=== PATIENT | female | born 1955 | race Caucasian/White ===

== ENCOUNTER 2024-05-06 11:38 | Outpatient (AMB) | payer OTHER, SELFPAY ==
--- NOTE | 2024-05-06 12:07 | MHC.OFFVIS ---
Vital Signs 05/06/24 12:17 Height 5 ft 3 in BMI Reason not done Patient refused/unable BP 126/82 Blood Pressure Location Rt brachial Position Sitting Pulse 68 Pulse Source Pulse Oximeter Pulse Oximetry (%) 96 Oxygen Delivery Method Room Air Intake Visit Reasons: colonoscopy Screening Intake Note: NEW PATIENT for [place] screening, records from PCP requested 05/01. Last colo > 10 YRS via [facility] Chief Complaint; Pt reports chronic hx of constipation and reflux. Both of which are fairly well controlled at the moment. Pt requests to have prep other than gavilyte, adverse reaction reported. Pt would prefer sutab if possible. [employer] Flatbed Driver Required: No Accompanied by: Self / Same As Patient Allergies bisacodyl [From GaviLyte-H and Bisacodyl] Adverse Reaction (Intermediate, Verified 05/06/24 12:22) Abdominal Pain naproxen Adverse Reaction (Intermediate, Verified 05/06/24 12:12) Dizziness polyethylene glycol 3350 [From GaviLyte-H and Bisacodyl] Adverse Reaction (Intermediate, Verified 05/06/24 12:22) Abdominal Pain potassium chloride [From GaviLyte-H and Bisacodyl] Adverse Reaction (Intermediate, Verified 05/06/24 12:22) Abdominal Pain sodium bicarbonate [From GaviLyte-H and Bisacodyl] Adverse Reaction (Intermediate, Verified 05/06/24 12:22) Abdominal Pain sodium chloride [From GaviLyte-H and Bisacodyl] Adverse Reaction (Intermediate, Verified 05/06/24 12:22) Abdominal Pain HPI HPI colonoscopy Screening: Details: 69 year old? female with past medical history of fibromyalgia, recurrent UTIs, depression, hypertension, chronic rhinitis, migraines, GERD, asthma, recent diagnosis of DVT is here today for pre colonoscopy screening.? Patient was sent to us by her PCP.? Last colonoscopy was in 2017.? Patient denies any gastrointestinal symptoms in the past or at present.? However patient does admit that she is unable to move her bowels daily. Currently on regimen of MiraLax every other day. Denies family history of CRC.? Denies history of difficulty with sedation or anesthesia in the past.? Negative for history of sleep apnea.? Denies any history of cardiac, renal, pulmonary, or hepatic disease.?? No history of infectious? diseases like hepatitis A, B, C, HIV or tuberculosis.? Patient is currently on Eliquis. Recently started on Eliquis, about 2 months ago for DVT of jugular in cephalic vein. Last ultrasound still showed blood clot per patient. Patient will be seen by a provider sometimes next month. She will require probably longer uninterrupted anticoagulation. [facility] Medical History Acute cough Onychomycosis Recurrent UTI Thrombosis of internal jugular vein DVT (deep venous thrombosis) Surgical History Hx of colonoscopy (~2013) History of cataract surgery Total knee replacement status Family History Paternal Uncle Colon cancer Maternal Aunt Breast cancer Social History Alcohol intake: current Comment: Glass of wine / night Patient Tobacco Use Status: Never used Tobacco Review of Systems Const Denies weight gain and Denies weight loss ENT Reports no additional complaints, Denies dysphagia and Denies odynophagia Card Reports no additional complaints Resp Reports no additional complaints GI Denies abdominal pain, Denies belching, Denies melena, Denies bloating, Denies change in bowel habits, Reports constipation (Occasional), Denies dysphagia, Denies excessive flatus, Denies dyspepsia, Reports heartburn (Occasional managed with diet and omeprazole), Denies diarrhea, Denies loose stools, Denies nausea, Denies odynophagia and Denies vomiting Reports no additional complaints Musc Reports no additional complaints Neuro Reports no additional complaints Psych Reports no additional complaints Endo Reports no additional complaints Physical Exam Vital Signs: Last Vital Signs Pulse 68 05/06/24 12:17 BP 126/82 05/06/24 12:17 Pulse Ox 96 05/06/24 12:17 Oxygen Delivery Method Room Air 05/06/24 12:17 Const Other: Patient is ambulating with wheeled walker General: no acute distress and well developed Nutritional Appearance: well nourished Orientation/consciousness: patient oriented x3 Resp Effort & Inspection: normal respiratory effort, able to speak in complete sentences, no tracheal deviation and symmetric chest movement Auscultation: clear to auscultation bilaterally Cardio Rate: regular rate GI Inspection: Yes normal to inspection and No distended Palpation (GI): Soft to palpation, not firm, nontender and No hepatosplenomegaly present Auscultation: normal bowel sounds General: Yes no CVA tenderness Back/Spine/Pelvis Back: no CVA tenderness Skin General skin exam: elasticity normal, turgor normal and dry skin Neuro General: patient oriented x3 Psych Appearance: grossly normal Mental Status: mental status grossly normal Assessment & Plan Assessment & Plan (1) Screen for colon cancer: Code(s): Z12.11 - Encounter for screening for malignant neoplasm of colon (2) DVT (deep venous thrombosis): Code(s): I82.409 - Acute embolism and thrombosis of unspecified deep veins of unspecified lower extremity Qualifiers: DVT location: upper extremity Affected thrombotic vein of extremity: axillary Chronicity: acute Laterality: left Qualified Code(s): I82.A12 - Acute embolism and thrombosis of left axillary vein (3) Anticoagulated by anticoagulation treatment: Code(s): Z79.01 - terminal system operator (current) use of anticoagulants Plan Discussed with patient what to expect before during and after procedure. Patient will try to take MiraLax daily and increase fluid intake. Patient is unable to interrupt her therapy with Eliquis due to DVT still present. So far 2 months of therapy. Patient will return in July. She will ask her provider how long she will require to be on uninterrupted anticoagulation. Patient is agreeable to this plan and verbalizes understanding of instructions. She will call us if she will have any GI concerning symptoms. She is agreeable to current plan of care and verbalizes understanding of instructions. She was given the opportunity to ask questions and all questions answered. Thank you for allowing me to participate in her care Coding Level of Care Code New Pt Level 3 (97618) Diagnoses Screen for colon cancer Z12.11 Acute deep vein thrombosis (DVT) of axillary vein of left upper extremity I82.A12 DVT location: upper extremity Affected thrombotic vein of extremity: axillary Chronicity: acute Laterality: left Anticoagulated by anticoagulation treatment Z79.01 Time Spent (min) 40 Comment 30 minutes spent with patient and additional 10 minutes spent reviewing her records
[2024-05-06 12:17] VITALS: BP 126/82; PULSE 68; O2SAT 96
== END 2024-05-06 12:45 | disposition home or self-care (01) ==
PROVIDERS: PCP Student in an Organized Health Care Education/Training Program; Visit Provider Nurse Practitioner Family
DX: K59.00 Constipation, unspecified (principal); I82.A12 Acute embolism and thrombosis of left axillary vein; Z79.01 Long term (current) use of anticoagulants
CPT/HCPCS: 99203

== ENCOUNTER → 2024-05-06 11:38 | Outpatient (BNVA) | payer OTHER, SELFPAY | PROVIDERS: PCP Student in an Organized Health Care Education/Training Program; Visit Provider Nurse Practitioner Family ==

== ENCOUNTER → 2024-06-25 10:11 | Day surgery (SDC) | payer MEDICARE, OTHER, SELFPAY ==
--- OUTSIDE RECORDS SUMMARY | 2024-06-23 16:47 | XMS_ITS | Clinical Summary ---
Author Organization [facility] [place] [address] Care Team Providers Care Metal Off Bearer Name Role Phone Inactive, Pcp External Primary Care Provider Radha vailable Allergies Active Allergy Reactions Criticality Noted Date Comments Cis Free Text Allergy High Hymenoptera (Bee) Stings. CIS - Anaphylaxis Naproxen Sodium CIS - extreme dizziness Medications Medication Sig Dispensed Refills Start Date End Date Status CIS Free Text Med - stinging insect allergy shots 06/23/2008 Active CIS Free Text Med - ASA (Aspirin) 06/23/2008 Active SUMAtriptan (IMITREX) 50 mg tablet 06/23/2008 Active traMADol (ULTRAM) 50 mg tablet 06/23/2008 Active montelukast (SINGULAIR) 10 mg tablet 06/23/2008 Active omeprazole (PRILOSEC) 40 mg capsule 06/23/2008 Active Calcium 500 mg Tab 06/23/2008 Active DOCOSAHEXANOIC ACID/EPA (FISH OIL ORAL) 06/23/2008 Active ascorbic acid (VITAMIN C) 1,000 mg tablet 06/23/2008 Active MULTIVITAMIN ORAL 06/23/2008 Active Cetirizine (ZYRTEC) 10 mg Cap Take 10 capsules by mouth daily. Active gabapentin (NEURONTIN) 600 mg tablet Take 1,200 mg by mouth 2 times daily. Active buPROPion (WELLBUTRIN) 100 mg tablet Take 100 mg by mouth 2 times daily. Active Cholecalciferol, Vitamin D3, (VITAMIN D) 2,000 unit Cap Take 2,000 mg by mouth 2 times daily. Active etodolac (LODINE) 500 mg tablet Take 500 mg by mouth 2 times daily. Active Ketamine (Bulk) 100 % Powd 10 %, Baclofen (Bulk) 100 % Powd 2 %, Cyclobenzaprine (Bulk) 100 % Powd 2 %, Gabapentin (Bulk) 100 % Powd 6 %, Tetracaine (Bulk) Powd 2 % Apply topically 4 times daily as needed. 240 g 5 04/06/2014 Active Social History Tobacco Use Types Packs/Day Years Used Date Smoking Tobacco: Never Sex and Gender Information Value Date Recorded Sex Assigned at Not on file Gender Identity Not on file Sexual Orientation Not on file Last Filed Vital Signs Vital Sign Reading Time Taken Comments Blood Pressure 145/108 08/25/2013 2:27 PM EDT Pulse 72 08/25/2013 2:27 PM EDT Temperature - - Respiratory Rate - - Oxygen Saturation 98% 08/25/2013 2:27 PM EDT Inhaled Oxygen Concentration - - Weight 86.2 kg (190 lb) 08/25/2013 2:27 PM EDT Height 162.6 cm (5' 4 ) 08/25/2013 2:27 PM EDT Body Mass Index 32.61 08/25/2013 2:27 PM EDT Plan of Treatment Health Maintenance Due Date Last Done Comments CT Colonography 1956 Colonoscopy 1956 Colorectal Cancer Screening 1956 FIT DNA 1956 FIT 1956 Sigmoidoscopy (10 year) with FIT yearly 1956 Sigmoidoscopy 1956 Hepatitis C Screening 1974 Tetanus/Diphtheria/Pertussis Vaccines (1 - Tdap) 1975 Breast Cancer Share Decision Needed 1996 Breast Cancer screening 1996 Pneumoccocal Vaccine: 50+ (1 of 1 - PCV) 2006 Zoster vaccine (1 of 2) 2006 Advance Directive 2011 Bone Density Scan 2021 Covid-19 Vaccine ( season) 2023 12/05/2021, 07/14/2020, 06/23/2020 Influenza (Flu) vaccine (1 o f 1 - Influenza standard series) 11/25/2023 Care Teams Metal Off Bearer Relationship Specialty Start Date End Date Inactive, Pcp External PCP - General 04/11/24
--- OUTSIDE RECORDS SUMMARY | 2024-06-23 16:47 | XMS_ITS | Referral Summary ---
Author Organization [facility] Address [address] [place] [address] Care Team Providers Care Motor Rebuilder Name Role Phone Hilary Zamudio Primary Care Provider [phone] Allergies Active Allergy Reactions Criticality Noted Date Comments Naproxen Sodium Dizziness,Other (see comments) 08/03/2017 CIS - extreme dizziness EXTREME DIZZINESS Medications amitriptyline (ELAVIL) 50 mg tablet Take 50 mg by mouth daily. 05/11/2023 Active etodolac (LODINE) 500 mg tablet Take 500 mg by mouth 2 times daily. 10/11/2022 Active chlorthalidone (HYGROTEN) 25 mg tablet Take 25 mg by mouth daily. 07/31/2022 Active buPROPion SR (WELLBUTRIN SR) 100 mg tablet Take 100 mg by mouth 2 times daily. 07/31/2022 Active omeprazole (PriLOSEC) 20 mg capsule Take 40 mg by mouth 2 times daily. 07/31/2022 Active montelukast (SINGULAIR) 10 mg tablet Take 10 mg by mouth daily. 07/31/2022 Active SUMAtriptan (IMITREX) 50 mg tablet Take 50 mg by mouth once daily as needed. 05/11/2023 Active traMADoL (ULTRAM) 50 mg tablet Take 50 mg by mouth 2 times daily as needed. 04/26/2023 Active fluticasone propionate (FLONASE) 50 mcg/actuation nasal spray SMARTSI [place](s) Both Nares Daily Active cholecalciferol (VITAMIN D3) 2,000 unit tablet Take 2,000 Units by mouth once a day. Active multivitamin (THERAGRAN) tablet Take 1 tablet by mouth once a day. Active calcium carbonate-vitami n D3 500 mg-3.125 mcg (125 unit) per tablet See admin instruction s. Active Active Problems Problem Noted Date Diagnosed Date Conductive hearing loss of l eft ear with unrestricted hearing of right ear 05/30/2023 Social History Tobacco Use Types Packs/Day Years Used Date Smoking Tobacco: Never Smokeless Tobacco: Never Tobacco Cessation:Counseling Given: Not Answered Comments Unknown Sex and Gender Information Value Date Recorded Sex Assigned at Female 05/29/2023 7:30 AM EST Legal Sex Female 11:53 AM EST Gender Identity Female 05/29/2023 7:30 AM EST Sexual Orientation Straight 05/29/2023 7: 30 AM EST Plan of Treatment Not on file Insurance MEDICARE [facility] Care Teams Motor Rebuilder Relationship Specialty Start Date End Date FritzHilary juarez [address] [place] [address], [address] [place] [id number] PCP - General 03/13/23
--- OUTSIDE RECORDS SUMMARY | 2024-06-23 16:47 | XMS_ITS | Clinical Summary ---
Author Organization [facility] Address [address] [place] [address] Care Team Providers Care Central Office Frame Wirer Name Role Phone Hilary Zamudio Primary Care Provider [phone] Allergies Active Allergy Reactions Criticality Noted Date [...] propionate (FLONASE) 50 mcg/actuation nasal spray SMARTSI [place](s) Both Nares Daily Active cholecalciferol (VITAMIN D3) [...] 7: 30 AM EST Plan of Treatment Health Maintenance Due Date Last Done Comments Cologuard 1956 Colon Cancer Screening 1956 Colonoscopy 1956 FOBT / Fit Test 1956 Sigmoidoscopy 1956 Osteoporosis Screening 2006 COVID-19 Vaccine ( season) 2023 12/29/2022, 08/04/2022, 12/05/2021, Additional history exists Influenza Vaccine (#1) 2023 , 12/05/2021, 11/19/2020, Additional history exists Alcohol/Substance Use Screening 03/26/2024 Health Care Proxy Review 03/26/2024 DTaP,Tdap,and Td Vaccines (3 - Td or Tdap) 03/22/2028 03/22/2018, 02/17/2009 Zoster Vaccines Completed 11/29/2017, 06/26, 07/28/2011 RSV Vaccine (60+ years old and patients) Completed 12/15/2022 Pneumococcal Vaccine: 50+ Years Completed 12/29/2022, 12/16/2021 Mammogram Discontinued 04/27/2023, 04/2023, 04/27/2023, Additional history exists Hepatitis B Vaccines Aged Out No long er eligible based on patient's age to complete this topic Insurance MEDICARE [facility] Care Teams Central Office Frame Wirer Relationship Specialty Start Date End Date Hilary Zamudio [address] [place] [address], [address] [place] [id number] PCP - General 03/13/23
--- NOTE | 2024-06-24 10:34 | HO.ANESPROP2 ---
HPI - Anesthesia Eval Consult details Narrative: 69yo F for Colonoscopy Eliquis for LUE DVT 03/2024 - follows [facility] heme, improved on imaging per 04/2024 office visit note - ok'd to hold eliquis 48h PMFSH Past Medical History Medical History Acute cough Onychomycosis Recurrent UTI Thrombosis of internal jugular vein DVT (deep venous thrombosis) Family History Family History Paternal Uncle Colon cancer Maternal Aunt Breast cancer Surgical History Surgical History Hx of colonoscopy (~2013) History of cataract surgery Total knee replacement status Social History Social History Alcohol intake: current Comment: Glass of wine / night Patient Tobacco Use Status: Never used Tobacco Meds Allergies Allergy/AdvReac Type Severity Reaction Status Date / Time bisacodyl AdvReac Intermediate Abdominal Verified 05/06/24 12:22 [From GaviLyte-H and Pain Bisacodyl] naproxen AdvReac Intermediate Dizziness Verified 05/06/24 12:12 polyethylene glycol 3350 AdvReac Intermediate Abdominal Verified 05/06/24 12:22 [From GaviLyte-H and Pain Bisacodyl] potassium chloride AdvReac Intermediate Abdominal Verified 05/06/24 12:22 [From GaviLyte-H and Pain Bisacodyl] sodium bicarbonate AdvReac Intermediate Abdominal Verified 05/06/24 12:22 [From GaviLyte-H and Pain Bisacodyl] sodium chloride AdvReac Intermediate Abdominal Verified 05/06/24 12:22 [From GaviLyte-H and Pain Bisacodyl] Home Medications ?Medication ?Instructions ?Recorded ?Confirmed ?Last Taken ?Type acetaminophen 325 mg capsule 325 mg PO QID PRN 05/06/24 Unknown History amitriptyline 75 mg tablet 75 mg PO BEDTIME 05/06/24 Unknown History apixaban 5 mg tablet (Eliquis) 5 mg PO BID 05/06/24 Unknown History ascorbic acid (vitamin C) 1,000 mg 1 g PO Q6H 05/06/24 Unknown History capsule bupropion HCl 100 mg tablet,12 hr 100 mg PO DAILY 05/06/24 Unknown History sustained-release (Wellbutrin SR) calcium 500 mg (as 1 tab PO DAILY 05/06/24 Unknown History carbonate)-vitamin D3 3.125 mcg (125 unit) tablet ciclopirox 8 % topical solution 1 appl topical BEDTIME 05/06/24 Unknown History clobetasol 0.05 % topical cream 1 appl topical BEDTIME 05/06/24 Unknown History conjugated estrogens 0.625 mg/gram 0.625 mg vaginal DAILY 05/06/24 Unknown History vaginal cream (Premarin) etodolac 500 mg tablet 500 mg PO BID 05/06/24 Unknown History fluticasone propionate 50 1 spray intranasal DAILY 05/06/24 Unknown History mcg/actuation nasal spray,suspension (Flonase Allergy Relief) lorazepam 1 mg tablet (Ativan) 1 mg PO DAILY PRN 05/06/24 Unknown History methenamine hippurate 1 gram tablet 1 g PO BID 05/06/24 Unknown History montelukast 10 mg tablet 10 mg PO DAILY 05/06/24 Unknown History multivitamin 1 tab PO DAILY 05/06/24 Unknown History omeprazole 20 mg capsule,delayed 20 mg PO DAILY 05/06/24 Unknown History release pregabalin 50 mg capsule (Lyrica) 50 mg PO BEDTIME 05/06/24 Unknown History sodium chloride 0.9 % nasal spray 1 spray intranasal BID PRN 05/06/24 Unknown History aerosol sumatriptan succinate 50 mg tablet 50 mg PO Q2-4H PRN 05/06/24 Unknown History tramadol 50 mg tablet 50 mg PO BID PRN 05/06/24 Unknown History triamcinolone acetonide 0.1 % 1 appl topical DAILY 05/06/24 Unknown History topical cream Assessment and Plan Assessment Anesthesia Assessment: Chart Reviewed
--- NOTE | 2024-06-25 11:27 | PC.NURSE ---
Patient has liquid brown results from colon prep, not clear at all. Dr Pacheco consulted, pt procedure cancelled. Pt will call office to re-book colonoscopy with a TWO day prep.
== END ==
LOC: HO.SSS 10:12
PROVIDERS: PCP Student in an Organized Health Care Education/Training Program; Visit Provider Internal Medicine Gastroenterology
DX: Z12.11 Encounter for screening for malignant neoplasm of colon (principal); Z53.8 Procedure and treatment not carried out for other reasons

== ENCOUNTER 2024-09-11 08:20 | Day surgery (SDC) | payer MEDICARE, OTHER, SELFPAY ==
--- OUTSIDE RECORDS SUMMARY | 2024-08-05 13:25 | XMS_ITS | Referral Summary ---
Author Organization [facility] Address [address] [place] [address] Care Team Providers Care Founder Ceo & President Name Role Phone Hilary Zamudio Primary Care Provider [phone] Allergies Active Allergy Reactions Criticality Noted Date [...] propionate (FLONASE) 50 mcg/actuation nasal spray SMARTSI [place](s) Both Nares Daily Active cholecalciferol (VITAMIN D3) [...] of Treatment Not on file Insurance MEDICARE [facility] Care Teams Founder Ceo & President Relationship Specialty Start Date End Date FritzHilary juarez [address] [place] [address], [address] [place] [address] PCP - General 03/13/23
--- OUTSIDE RECORDS SUMMARY | 2024-08-05 13:25 | XMS_ITS | Clinical Summary ---
Author Organization [facility] Address [address] [place] [address] Care Team Providers Care Infusion Rn Name Role Phone Hilary Zamudio Primary Care Provider [phone] Allergies Active Allergy Reactions Criticality Noted Date [...] propionate (FLONASE) 50 mcg/actuation nasal spray SMARTSI [place](s) Both Nares Daily Active cholecalciferol (VITAMIN D3) [...] 2023 12/29/2022, 08/04/2022, 12/05/2021, Additional history exists Alcohol/Substance Use Screening 03/26/2024 Health Care Proxy Review 03/26/2024 Influenza Vaccine (Season Ended) 2024 12/15/2022, 12/05/2021, 11/19/2020, Additional history exists DTaP,Tdap,and Td Vaccines (3 - Td or Tdap) 03/22/2028 03/22/2018, 02/17/2009 Zoster Vaccines Completed 11/29/2017, 06/26, 07/28/2011 RSV Vaccine (60+ years old and patients) Completed 12/15/2022 Pneumococcal Vaccine: 50+ Years Completed 12/29/2022, 12/16/2021 Mammogram Discontinued 04/27/2023, 04/2023, 04/27/2023, Additional history exists Hepatitis B Vaccines Aged Out No long er eligible based on patient's age to complete this topic Insurance MEDICARE [facility] Care Teams Infusion Rn Relationship Specialty Start Date End Date Hilary Zamudio [address] [place] [address], [address] [place] [id number] PCP - General 03/13/23
--- NOTE | 2024-09-10 10:22 | HO.ANESPROP2 ---
Documented by User: Africa Graf NP 09/10/24 10:29 HPI - Anesthesia Eval Consult details Narrative: 69yo F for Colonoscopy Eliquis for LUE and L IJ DVT (02/2024) - Follows [facility] last office visit 05/2024 with improvement of clot burden. Ok'd to hold eliquis for colo PMFSH Past Medical History Medical History (Updated 08/14/24 @ 15:23 by Justa Orlando RN) Arthritis Asthma Fibromyalgia Migraines Complex regional pain syndrome I HTN (hypertension) Onychomycosis Recurrent UTI Thrombosis of internal jugular vein DVT (deep venous thrombosis) Family History Family History Paternal Uncle Colon cancer Maternal Aunt Breast cancer Surgical History Surgical History Hx of colonoscopy (~2013) History of cataract surgery Total knee replacement status Social History Social History Are you a primary care navigator to a significant other at home: No Do you presently have visiting nurse or other home services: No Alcohol intake: current Alcohol intake frequency: 0-2 drinks per day Comment: Glass of wine / night Patient Tobacco Use Status: Never used Tobacco Second Hand Smoke Exposure: No Use of substances other than those prescribed or required for medical reasons: No Have you been hit, kicked, punched, or otherwise hurt by someone within the past year? If so, by whom?: No Are you DNR?: No Advance Directives: No Advance Directives Information Provided: Yes Advance Directives on File: No Patient : No : No Poor oral hygiene: No Meds Allergies Allergy/AdvReac Type Severity Reaction Status Date / Time bisacodyl (From GaviLyte-H AdvReac Intermediate Abdominal Verified 05/06/24 12:22 and Bisacodyl) Pain naproxen AdvReac Intermediate Dizziness Verified 05/06/24 12:12 polyethylene glycol 3350 AdvReac Intermediate Abdominal Verified 05/06/24 12:22 (From GaviLyte-H and Pain Bisacodyl) potassium chloride (From AdvReac Intermediate Abdominal Verified 05/06/24 12:22 GaviLyte-H and Bisacodyl) Pain sodium bicarbonate (From AdvReac Intermediate Abdominal Verified 05/06/24 12:22 GaviLyte-H and Bisacodyl) Pain sodium chloride (From AdvReac Intermediate Abdominal Verified 05/06/24 12:22 GaviLyte-H and Bisacodyl) Pain Home Medications ?Medication ?Instructions ?Recorded ?Confirmed ?Last Taken ?Type acetaminophen 325 mg capsule 325 mg PO QID PRN Pain 05/06/24 08/14/24 Unknown History amitriptyline 75 mg tablet 75 mg PO BEDTIME 05/06/24 08/14/24 Unknown History apixaban 5 mg tablet (Eliquis) 5 mg PO BID 05/06/24 08/14/24 Unknown History ascorbic acid (vitamin C) 1,000 mg 1 g PO Q6H 05/06/24 08/14/24 Unknown History capsule bupropion HCl 100 mg tablet,12 hr 100 mg PO DAILY 05/06/24 08/14/24 Unknown History sustained-release (Wellbutrin SR) calcium 500 mg (as 1 tab PO DAILY 05/06/24 08/14/24 Unknown History carbonate)-vitamin D3 3.125 mcg (125 unit) tablet ciclopirox 8 % topical solution 1 appl topical BEDTIME 05/06/24 08/14/24 Unknown History clobetasol 0.05 % topical cream 1 appl topical BEDTIME 05/06/24 08/14/24 Unknown History conjugated estrogens 0.625 mg/gram 0.625 mg vaginal DAILY 05/06/24 08/14/24 Unknown History vaginal cream (Premarin) etodolac 500 mg tablet 500 mg PO BID 05/06/24 08/14/24 Unknown History fluticasone propionate 50 1 spray intranasal DAILY 05/06/24 08/14/24 Unknown History mcg/actuation nasal spray,suspension (Flonase Allergy Relief) lorazepam 1 mg tablet (Ativan) 1 mg PO DAILY PRN Anxiety 05/06/24 08/14/24 Unknown History methenamine hippurate 1 gram tablet 1 g PO BID 05/06/24 08/14/24 Unknown History montelukast 10 mg tablet 10 mg PO DAILY 05/06/24 08/14/24 Unknown History multivitamin 1 tab PO DAILY 05/06/24 08/14/24 Unknown History omeprazole 20 mg capsule,delayed 20 mg PO DAILY 05/06/24 08/14/24 Unknown History release pregabalin 50 mg capsule (Lyrica) 50 mg PO BEDTIME 05/06/24 08/14/24 Unknown History sodium chloride 0.9 % nasal spray 1 spray intranasal BID PRN nasal 05/06/24 08/14/24 Unknown History aerosol dryness sumatriptan succinate 50 mg tablet 50 mg PO Q2-4H PRN Migraine 05/06/24 08/14/24 Unknown History Headache tramadol 50 mg tablet 50 mg PO BID PRN Pain 05/06/24 08/14/24 Unknown History triamcinolone acetonide 0.1 % 1 appl topical DAILY 05/06/24 08/14/24 Unknown History topical cream chlorthalidone 25 mg tablet 25 mg PO DAILY 08/14/24 08/14/24 Unknown History Exam Height,Weight and Vital Signs: Height 5 ft 3 in Assessment and Plan Assessment Anesthesia Assessment: Chart Reviewed Documented by User: Bry Irwin MD 09/11/24 10:02 [facility] Past Medical History Medical History (Updated 08/14/24 @ 15:23 by Justa Orlando RN) Arthritis Asthma Fibromyalgia Migraines Complex regional pain syndrome I HTN (hypertension) Onychomycosis Recurrent UTI Thrombosis of internal jugular vein DVT (deep venous thrombosis) Family History Family History Paternal Uncle Colon cancer Maternal Aunt Breast cancer Family history of problems with anesthesia: No Surgical History Surgical History Hx of colonoscopy (~2013) History of cataract surgery Total knee replacement status History of Problems with Anesthesia: No Social History Social History Are you a primary care navigator to a significant other at home: No Do you presently have visiting nurse or other home services: No Alcohol intake: current Alcohol intake frequency: 0-2 drinks per day Comment: Glass of wine / night Patient Tobacco Use Status: Never used Tobacco Second Hand Smoke Exposure: No Use of substances other than those prescribed or required for medical reasons: No Have you been hit, kicked, punched, or otherwise hurt by someone within the past year? If so, by whom?: No Are you DNR?: No Advance Directives: No Advance Directives Information Provided: Yes Advance Directives on File: No Patient : No : No Poor oral hygiene: No Meds Allergies Allergy/AdvReac Type Severity Reaction Status Date / Time bisacodyl (From GaviLyte-H AdvReac Intermediate Abdominal Verified 05/06/24 12:22 and Bisacodyl) Pain naproxen AdvReac Intermediate Dizziness Verified 05/06/24 12:12 polyethylene glycol 3350 AdvReac Intermediate Abdominal Verified 05/06/24 12:22 (From GaviLyte-H and Pain Bisacodyl) potassium chloride (From AdvReac Intermediate Abdominal Verified 05/06/24 12:22 GaviLyte-H and Bisacodyl) Pain sodium bicarbonate (From AdvReac Intermediate Abdominal Verified 05/06/24 12:22 GaviLyte-H and Bisacodyl) Pain sodium chloride (From AdvReac Intermediate Abdominal Verified 05/06/24 12:22 GaviLyte-H and Bisacodyl) Pain Home Medications ?Medication ?Instructions ?Recorded ?Confirmed ?Last Taken ?Type acetaminophen 325 mg capsule 325 mg PO QID PRN Pain 05/06/24 08/14/24 Unknown History amitriptyline 75 mg tablet 75 mg PO BEDTIME 05/06/24 08/14/24 Unknown History apixaban 5 mg tablet (Eliquis) 5 mg PO BID 05/06/24 08/14/24 Unknown History ascorbic acid (vitamin C) 1,000 mg 1 g PO Q6H 05/06/24 08/14/24 Unknown History capsule bupropion HCl 100 mg tablet,12 hr 100 mg PO DAILY 05/06/24 08/14/24 Unknown History sustained-release (Wellbutrin SR) calcium 500 mg (as 1 tab PO DAILY 05/06/24 08/14/24 Unknown History carbonate)-vitamin D3 3.125 mcg (125 unit) tablet ciclopirox 8 % topical solution 1 appl topical BEDTIME 05/06/24 08/14/24 Unknown History clobetasol 0.05 % topical cream 1 appl topical BEDTIME 05/06/24 08/14/24 Unknown History conjugated estrogens 0.625 mg/gram 0.625 mg vaginal DAILY 05/06/24 08/14/24 Unknown History vaginal cream (Premarin) etodolac 500 mg tablet 500 mg PO BID 05/06/24 08/14/24 Unknown History fluticasone propionate 50 1 spray intranasal DAILY 05/06/24 08/14/24 Unknown History mcg/actuation nasal spray,suspension (Flonase Allergy Relief) lorazepam 1 mg tablet (Ativan) 1 mg PO DAILY PRN Anxiety 05/06/24 08/14/24 Unknown History methenamine hippurate 1 gram tablet 1 g PO BID 05/06/24 08/14/24 Unknown History montelukast 10 mg tablet 10 mg PO DAILY 05/06/24 08/14/24 Unknown History multivitamin 1 tab PO DAILY 05/06/24 08/14/24 Unknown History omeprazole 20 mg capsule,delayed 20 mg PO DAILY 05/06/24 08/14/24 Unknown History release pregabalin 50 mg capsule (Lyrica) 50 mg PO BEDTIME 05/06/24 08/14/24 Unknown History sodium chloride 0.9 % nasal spray 1 spray intranasal BID PRN nasal 05/06/24 08/14/24 Unknown History aerosol dryness sumatriptan succinate 50 mg tablet 50 mg PO Q2-4H PRN Migraine 05/06/24 08/14/24 Unknown History Headache tramadol 50 mg tablet 50 mg PO BID PRN Pain 05/06/24 08/14/24 Unknown History triamcinolone acetonide 0.1 % 1 appl topical DAILY 05/06/24 08/14/24 Unknown History topical cream chlorthalidone 25 mg tablet 25 mg PO DAILY 08/14/24 08/14/24 Unknown History Exam Airway Mallampati Class: II TM Dist: >3cm Neck ROM: Full Assessment and Plan Assessment Anesthesia Assessment: Anesthesia Plan Discussed Final Anesthetic Review Family History of Problems with Anesthesia: No History of Problems with Anesthesia: No NPO: Yes ASA Class: II Final Preanesthetic Review: No Changes in Pt Med Stat, Meds/Allgs Chart Reviewed, Consent Obtained/Reviewed and Anes Risks/Benef Reviewed Patient Risk: Low Procedure Risk: Low Anesthetic Plan Anesthetic Plan: TIVA Disposition: Standard PACU
[2024-09-11 08:46] VITALS: BMI 33.7
[2024-09-11 08:47] VITALS: BP 118/70; PULSE 81; RESP 17; TEMP 36.1; O2SAT 97
[2024-09-11] MEDS: Lactated Ringers 1,000 ML 100 ML IVCONT (08:55)
--- NOTE | 2024-09-11 09:39 | MHC.SHP ---
Pre-Procedural Eval Section A - 24 Hr Update-Section A only Date of Service: 09/11/24 Section B - Complete if H&P > 30 days Chief Complaint: Encounter for screening for malignant neoplasm of Relevant Family History (Specify if Yes): Yes Relevant Social History: None Present Medications: see Short Stay Collaborative assessment Medical History: Significant History (Acute cough Onychomycosis Recurrent UTI Thrombosis of internal jugular vein DVT (deep venous thrombosis)) History of Previous Operations: Relevant previous surgery/procedure and date(s) ( Hx of colonoscopy (~2013) History of cataract surgery Total knee replacement status) Allergies: Allergies Allergy/AdvReac Type Severity Reaction Status Date / Time bisacodyl (From GaviLyte-H AdvReac Intermediate Abdominal Verified 05/06/24 12:22 and Bisacodyl) Pain naproxen AdvReac Intermediate Dizziness Verified 05/06/24 12:12 polyethylene glycol 3350 AdvReac Intermediate Abdominal Verified 05/06/24 12:22 (From GaviLyte-H and Pain Bisacodyl) potassium chloride (From AdvReac Intermediate Abdominal Verified 05/06/24 12:22 GaviLyte-H and Bisacodyl) Pain sodium bicarbonate (From AdvReac Intermediate Abdominal Verified 05/06/24 12:22 GaviLyte-H and Bisacodyl) Pain sodium chloride (From AdvReac Intermediate Abdominal Verified 05/06/24 12:22 GaviLyte-H and Bisacodyl) Pain Review of Systems Sugical H&P ROS: Negative: Constitution, Cardiovascular, Respiratory, Neurological, Psychiatric, Hem-Onc, Allergic/Immunologic, Gastrointestinal, Genitourinary, Musculoskeletal, Integumentary, Endocrine and Eyes/Ears/Nose/Throat Exam Surgical H&P Exam: Normal: HEENT, Normal: Heart, Normal: Lungs, Normal: Extremities, Normal: Abdomen, Normal: Skin and Normal: Neurological Plan Diagnosis/Plan: Unchanged I have reviewed the history and physical and performed a pertinent physical examination on my patient. No changes have occurred unless specified. Time Spent With Patient Time: Total time managing care of this patient today ____ minutes.
--- NOTE | 2024-09-11 10:21 | HO.OPN-COLON ---
Colonoscopy Operative Note Operative Note Date of Service: 09/11/24 Narrative: Operative Information Procedure Description: Colonoscopy Indication: screening Anesthesia: MAC COLONOSCOPY Instrument: Olympus variable stiffness pediatric scope 190L Colonoscopy Monitoring: Vital signs and clinical assessment, continuous EKG monitoring, Pulse oximetry, Carbon Dioxide monitoring and blood pressure monitoring were done throughout the procedure. Colon withdrawal time was 9 minutes. Procedure: The patient was placed in the left lateral decubitis position and pre-procedure medications were administered. After a digital rectal examination of the ano-rectum, the video colonoscope was inserted into the rectum and advanced through the colon to the cecum/TI. The colonoscope was slowly withdrawn in a retrograde panoramic fashion and the colon mucosa was carefully examined including a retroflexed view of the rectum. Findings and interventions are described below. Procedure Difficulty: difficult, colowrap applied and put her on back which helped--redundant colon Findings: Terminal Ileum-normal Cecum:normal right sided retroflexion- normal Ascending Colon: normal Transverse Colon -normal Descending Colon:normal Sigmoid Colon: normal Rectum: Retroflexion with small internal hemorrhoids seen, grade I Anorectum - normal Intervention: none Colon preparation: [place] Bowel Preparation Scale Right colon; 2 Transverse colon: 2 Left colon; 2 (0 = Unprepared colon segment with mucosa not seen due to solid stool that cannot be cleared. 1 = Portion of mucosa of the colon segment seen, but other areas of the colon segment not well seen due to staining, residual stool and/or opaque liquid. 2 = Minor amount of residual staining, small fragments of stool and/or opaque liquid, but mucosa of colon segment seen well. 3 = Entire mucosa of colon segment seen well with no residual staining, small fragments of stool or opaque liquid) Impression and Post Procedure Diagnosis: redundant colon internal hemorrhoids Plan: High fiber diet leaflet Avoid straining at stool, epsom salts and sitz bath, anusol supps or cream Repeat Colonoscopy in 10 years or earlier if clinically indicated Above findings were reviewed with the patient and relevant handouts were provided if indicated.
[2024-09-11 10:30] VITALS: BP 110/70; PULSE 75; RESP 15; TEMP 36.3; O2SAT 95
[2024-09-11 10:45] VITALS: BP 116/68; PULSE 59; RESP 16; TEMP 36.2; O2SAT 95
== END 2024-09-11 11:12 | disposition home or self-care (01) ==
PROVIDERS: PCP Student in an Organized Health Care Education/Training Program; Visit Provider Internal Medicine Gastroenterology
PROC: 0DJD8ZZ Inspection of Lower Intestinal Tract, Via Natural or Artificial Opening Endoscopic (ICD-10-PCS; CPT 45378; principal; 2024-09-11 10:20)
DX: Z12.11 Encounter for screening for malignant neoplasm of colon (principal); Q43.8 Other specified congenital malformations of intestine; K64.0 First degree hemorrhoids; I10 Essential (primary) hypertension; J45.909 Unspecified asthma, uncomplicated; Z86.718 Personal history of other venous thrombosis and embolism; Z79.01 Long term (current) use of anticoagulants; Z79.899 Other long term (current) drug therapy
CPT/HCPCS: G0121; J2003; J2704

== ENCOUNTER → 2024-09-11 08:20 | Outpatient (BNV) | payer MEDICARE, OTHER, SELFPAY | PROVIDERS: PCP Student in an Organized Health Care Education/Training Program; Visit Provider Internal Medicine Gastroenterology | DX: Z12.11 Encounter for screening for malignant neoplasm of colon (principal); K56.2 Volvulus; K64.0 First degree hemorrhoids | CPT/HCPCS: G0121 ==